=== PATIENT | male | born 1955 | race Caucasian/White ===

== ENCOUNTER 2018-11-10 13:15 | Emergency (ER) | payer OTHER | END 2018-11-10 16:02 | disposition home or self-care (01) | LOC: FTE 13:15 | DX: S63.501A Unspecified sprain of right wrist, initial encounter (principal); I10 Essential (primary) hypertension; W01.198A Fall on same level from slipping, tripping and stumbling with subsequent striking against other object, initial encounter; Y92.9 Unspecified place or not applicable | CPT/HCPCS: 29125; 73080-RT; 73110-RT; 73130-RT; 99283-25 ==